=== PATIENT | female | born 1985 | race Hispanic/Latino ===

== ENCOUNTER 2022-01-29 19:32 | Emergency (ER) | payer OTHER, SELFPAY ==
[2022-01-29] VITALS (10 sets, daily range): BP systolic 117–148; BP diastolic 76–81; PULSE 50–72; RESP 12–21; TEMP 36.2; O2SAT 97–100
--- NOTE | ~2022-01-29 | XR_ITS ---
EXAMINATION: XR chest 2V Exam Date/Time: 01/29/2022 20:10 CDT HISTORY: chest pain, cough Comparison: None available. RESULT: Lines, tubes, and devices: None. Lungs and pleura: Clear. Cardiomediastinal silhouette: Normal. Other: No acute osseous or upper abdominal finding. IMPRESSION: No acute cardiopulmonary process. Reviewed, dictated and finalized at location K.
--- NOTE | 2022-01-29 19:35 | ECG_ITS ---
Measurements Intervals [place] Rate: 71 P: 10 NC: 144 QRS: 26 QRSD: 90 T: 30 QT: 393 QTc: 428 Interpretive Statements SINUS RHYTHM NORMAL EKG NO PREVIOUS ECG AVAILABLE FOR COMPARISON Electronically Signed On 01-30-2022 18:11:56 CDT by Reta Plata M.D.
[2022-01-29 20:20] LABS: Basophils Absolute Auto 0.1 K/mm3 (0.0-0.1); Basophils Percent Auto 0.8 % (0.2-1.2); Eosinophils Absolute Auto 0.1 K/mm3 (0-0.3); Hematocrit 40.5 % (37.0-47.0); Hemoglobin 12.9 g/dL (12.0-15.0); Immature Granulocyte Absolute 0.02 K/mm3 (0.00-0.031); Immature Granulocyte Percent A 0.2 % (0-0.5); Lymphocytes Absolute Auto 2.17 K/mm3 (0.9-3.2); Lymphocytes Percent Auto 24.8 % (18.3-44.2); Mean Corpuscular HGB Conc 31.9 g/dl (32-36); Mean Corpuscular Hemoglobin 26.6 pg (26-34); Mean Corpuscular Volume 83.5 fl (80-100); Mean Platelet Volume 11.6 fl (7.4-10.4); Monocytes Absolute Auto 0.5 K/mm3 (0.1-0.6); Monocytes Percent Auto 5.3 % (2.6-8.5); Neutrophils Absolute Auto 5.9 K/mm3 (1.3-6.7); Neutrophils Percent Auto 67.9 % (45.5-73.1); Platelet Count Result 252 k/mm3 (150-375); Red Blood Count 4.85 M/mm3 (4.2-5.4); Red Cell Distribution Width 14.6 % (11.5-14.5); White Blood Count 8.7 K/mm3 (4.5-10.0)
[2022-01-29 20:35] LABS: Partial Thromboplastin Time 30.1 SECONDS (22.3-36.8); Prothrombin Time 12.3 Seconds (11.1-14.7)
[2022-01-29 20:36] LABS: Alanine Aminotransferase 41 U/L (6-35); Albumin Level 4.7 g/dL (3.5-5.1); Alkaline Phosphatase 82 U/L (38-126); Anion Gap 10 mmol/L (8-16); Aspartate Amino Transferase 30 U/L (14-36); Bilirubin,Total 0.3 mg/dL (0.2-1.3); Blood Urea Nitrogen 7 mg/dL (7-17); Calcium 8.9 mg/dL (8.4-10.2); Carbon Dioxide 26 mmol/L (22-30); Chloride 105 mmol/L (98-107); Estimated CRCL calculation 133 ml/min; Estimated Glomerular Filt Rate > 60; Glucose 114 mg/dL (65-110); Lipase 76 U/L (23-300); Potassium 4.2 mmol/L (3.4-5.0); Sodium 141 mmol/L (137-145)
[2022-01-29 20:44] LABS: Troponin I < 0.012 ng/mL (0.000-0.034)
--- NOTE | 2022-01-29 22:51 | ED.GENADULT ---
HPI - General Adult General Chief complaint: Chest Pain Stated complaint: intermittent chest pain since 4 PM, radiates L arm Time Seen by Provider: 01/29/22 22:28 History of Present Illness HPI narrative: 36-year-old female presenting to the emergency department for evaluation of intermittent left-sided chest pain. Patient states that at approximately 4:00 she had onset of the left-sided chest pain. Patient denies any diaphoresis or shortness of breath with this. Patient states pain did briefly radiate to her left arm. Since that time patient states the pain has resolved. Patient has no prior cardiac history. Patient has no prior history of PE or DVT. Patient denies any recent falls or injuries. Patient denies any coughs colds or fevers. Patient denies any other significant past medical history does not take any medications. At time of evaluation patient denies any chest pain. Family member acted as automatic drilling machine operator. Related Data Allergies Allergy/AdvReac Type Severity Reaction Status Date / Time No Known Allergies Allergy Unverified 10/17/13 19:54 Review of Systems Review of Systems: CONSTITUTIONAL: Denies fever, chills, or sweats. EYES: Denies visual changes, redness, or discharge. ENT: Denies rhinorrhea, congestion, sore throat, or otalgia. CARDIOVASCULAR: See HPI RESPIRATORY: Denies cough or dyspnea. GASTROINTESTINAL: Denies abdominal pain, nausea, vomiting, or diarrhea. GENITOURINARY: Denies dysuria or hematuria. SKIN: Denies rash or itching. MUSCULOSKELETAL: Denies back pain, joint pain, or myalgia. NEUROLOGIC: Denies headache, numbness, or weakness. Exam Narrative: APPEARANCE: Well appearing, no pain, no distress, well-nourished. HEAD: normocephalic, atraumatic. EYES: PERRLA/EOMI, conjunctivae clear. NOSE: Normal no drainage THROAT: Pharynx clear, no exudate. NECK: Supple. No adenopathy, no masses. RESPIRATORY: Airway patent, respirations nonlabored. Clear to auscultation bilaterally, no rales, rhonchi, wheezing. CARDIOVASCULAR: Regular rate and rhythm without murmurs rubs or gallops. Reproducible left chest wall tenderness to palpation. ABDOMINAL: Soft, nontender, nondistended, normal bowel sounds MUSCULOSKELETAL: Moves all extremities. Strength/ROM intact, No edema, No calf tenderness. NEURO: Alert. Cranial nerves II through XII intact. Grossly intact SKIN: Warm, dry. Normal Color Course Course Emergency Course: Patient was afebrile with no leukocytosis. CMP was within normal limits. Patient had negative serial troponins. Chest x-ray showed no acute cardiopulmonary normality. Patient was updated results of her work-up. All question concerns were addressed. Suspect pleurisy as the underlying etiology. Also considered ACS and PE. Vital Signs Vital signs: Vital Signs Temperature 97.2 F L 01/29/22 19:44 Pulse Rate 72 01/29/22 19:44 Respiratory Rate 16 01/29/22 19:44 Blood Pressure 148/81 H 01/29/22 19:44 Pulse Oximetry 100 01/29/22 19:44 Oxygen Delivery Room Air 01/29/22 19:44 Temperature 97.2 F L 01/29/22 19:44 Pulse Rate 53 L 01/29/22 23:31 Respiratory Rate 21 H 01/29/22 23:31 Blood Pressure 117/79 01/29/22 23:01 Pulse Oximetry 98 01/29/22 23:31 Oxygen Delivery Room Air 01/29/22 22:52 Medical Decision Making Vital Signs Vital Signs: Vital Signs Temperature 97.2 F L 01/29/22 19:44 Pulse Rate 72 01/29/22 19:44 Respiratory Rate 16 01/29/22 19:44 Blood Pressure 148/81 H 01/29/22 19:44 Pulse Oximetry 100 01/29/22 19:44 Oxygen Delivery Room Air 01/29/22 19:44 Temperature 97.2 F L 01/29/22 19:44 Pulse Rate 53 L 01/29/22 23:31 Respiratory Rate 21 H 01/29/22 23:31 Blood Pressure 117/79 01/29/22 23:01 Pulse Oximetry 98 01/29/22 23:31 Oxygen Delivery Room Air 01/29/22 22:52 Lab Data Lab results reviewed: Yes I reviewed the patient's lab results. Result diagrams: 01/29/22 20:11 01/29/22 20:11
[2022-01-29 23:22] LABS: Troponin I < 0.012 ng/mL (0.000-0.034)
== END 2022-01-29 23:42 | disposition home or self-care (01) ==
PROVIDERS: Emergency Medicine; Emergency Provider Emergency Medicine
DX: R07.89 Other chest pain (principal)
CPT/HCPCS: 36415; 71046; 80053; 83690; 84484; 85025; 85610; 85730; 93005; 99284